=== PATIENT | male | born 1985 | race Caucasian/White ===

== ENCOUNTER 2018-02-12 02:09 | Emergency (ER) | payer MEDICAID, OTHER ==
[~2018-02-12] VITALS: Ht 185.4 cm; Wt 94.3 kg
[~2018-02-12 02:09] MED LIST: LEVEMIR SUBQ; METF500T PO; MIC5 PO
[2018-02-12 02:12] VITALS: BP 121/83
--- NOTE | 2018-02-12 02:16 | NUR ---
Report given to Randy CONTRERAS.
--- NOTE | 2018-02-12 02:16 | NUR ---
Patient ambulated to bed 3 with family. RN evaluating patient at bedside.
--- NOTE | 2018-02-12 02:25 | NUR ---
PT IS A 32 Y/O MALE WHO PRESENTS TO THE ED C/O SHOULDER PAIN. PT STATES THAT IT HAS BEEN GOING ON X1 MONTH. PT REPORTS 7/10 ACHING L SHOULDER PAIN THAT DOES NOT RADIATE, PT DENIES INJURY. NOTED NO OBVIOUS TRAUMA OR DEFORMITY. PT DENIES CP, SOB, N/V/D. PT AWAKE AND ALERT, RR EVEN/UNLABORED. PT REPOSITIONED FOR COMFORT, BED IN LOWEST POSITION. ER MD DR. BEAULIEU NOTIFIED. WILL CONTINUE TO MONITOR.
[2018-02-12] MEDS ORDERED: KETOROLAC 60 MG/2 ML VIAL IM ONE (02:50)
[2018-02-12 03:45] VITALS: BP 130/83
== END 2018-02-12 03:45 | disposition home or self-care (01) ==
LOC: MED 02:09
DX: M25.512 Pain in left shoulder (principal); J45.909 Unspecified asthma, uncomplicated; E11.9 Type 2 diabetes mellitus without complications; I10 Essential (primary) hypertension; Z79.899 Other long term (current) drug therapy
CPT/HCPCS: 73030; 96372; 99284; J1885; Q0092

== ENCOUNTER 2018-08-09 19:25 | Emergency (ER) | payer SELFPAY ==
[~2018-08-09] VITALS: Ht 185.4 cm; Wt 89.4 kg
[2018-08-09 19:33] VITALS: BP 138/90
--- NOTE | 2018-08-09 19:36 | NUR ---
TO LOBBY A/W BED, JOAN PALUMBO, ORI NOTED
--- NOTE | 2018-08-09 20:04 | NUR ---
EKG PERFORMED IN TRAIGE ROOM WITH TRIAGE NURSE PRESENT
--- NOTE | 2018-08-09 20:33 | NUR ---
PT TAKEN TO BED 8
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
--- NOTE | 2018-08-09 20:57 | NUR ---
Dr. Tolentino evaluating patient at bedside.
--- NOTE | 2018-08-09 21:17 | NUR ---
REPORT TO IRMA CONTRERAS TRANSFER OF CARE AT THIS TIME
--- NOTE | 2018-08-09 21:40 | NUR ---
PT TO CT VIA WHEELCHAIR BY TECH.
[2018-08-09] MEDS ORDERED: MECLIZINE 25 MG TAB PO ONE (21:45)
[2018-08-09] MEDS ORDERED: KETOROLAC 30 MG/ML VIAL IM ONE (22:00)
[2018-08-09 22:14] VITALS: BP 128/91
--- NOTE | 2018-08-09 22:16 | NUR ---
COMFORT MEASURES PROVIDED. S/O AT BEDSIDE. 5/10 PAIN AT THIS TIME. PT ACTING APPROPRIATLY. WILL CONTINUE TO MONITOR.
--- NOTE | 2018-08-09 22:39 | NUR ---
SLING SIZE LARGE PLACE ON PT R ARM, FITTED TO PT. +CSM
--- NOTE | 2018-08-09 22:44 | NUR ---
SLING PLACED ON PT LEFT ARM BY EMT. ACTIVE ROM TO PHALANGES. RADIAL PULSES WNL BL, AT THIS TIME.
--- NOTE | 2018-08-09 23:16 | NUR ---
Patient discharged with v/s stable. Written and verbal after care instructions given and explained. Patient alert, oriented and verbalized understanding of instructions. Ambulatory with steady gait. All questions addressed prior to discharge. ID band removed. Patient advised to follow up with PMD. Rx of MECLIZINE AND MOTRIN given. Patient educated on indication of medication including possible reaction and side effects. Opportunity to ask questions provided and answered.
== END 2018-08-09 23:16 | disposition home or self-care (01) ==
LOC: MED 19:25
DX: R42 Dizziness and giddiness (principal); M25.511 Pain in right shoulder; J45.909 Unspecified asthma, uncomplicated; E11.9 Type 2 diabetes mellitus without complications; I10 Essential (primary) hypertension; Z79.4 Long term (current) use of insulin; Z79.899 Other long term (current) drug therapy; W19.XXXA Unspecified fall, initial encounter; Y93.89 Activity, other specified; Y92.89 Other specified places as the place of occurrence of the external cause; Y99.8 Other external cause status
CPT/HCPCS: 70450; 74176; 82948; 93005; 96372; 99284; J1885; J8597

== ENCOUNTER 2018-11-29 04:00 | Emergency (ER) | payer OTHER ==
[~2018-11-29] VITALS: Ht 185.4 cm; Wt 81.6 kg
--- NOTE | 2018-11-29 04:03 | NUR ---
PT TAKEN TO BED 3
--- NOTE | 2018-11-29 04:06 | NUR ---
32/M PRESENTS TO ED, C/O LLE PAIN X1 MONTH, WITH SUDDEN ONSET NUMBNESS ON LLE THIS EARLY AM. LLLE NOTED WITH LARGE PSORIASIS RASH, TENDER TO TOUCH, +CMS. PT DENIES INJURY/TRAUMA. DENIES CP, SOB, N/V. PT AWAKE AND ALERT, SKIN NOTED WITH PSORIASIS RASH, WARM AND DRY, RR EVEN AND UNLABORED. PT ADMITS TO DRINKING ALCOHOL 4 HRS AGO. HX DM, HTN, PSORIASIS, CHRONIC ALCOHOLISM RX METFORMIN, LISINOPRIL, GABAPENTIN
[2018-11-29 04:07] VITALS: BP 134/77
[2018-11-29] MEDS ORDERED: MORPHINE SULFATE 2 MG/ML SYR IM ONE (04:20)
[2018-11-29] MEDS ORDERED: INSULIN REGULAR, HUMAN 100 UNIT/ML VIAL IVP ONE (04:30)
[2018-11-29] MEDS ORDERED: NACL 0.9% 1,000 ML IV ONE (04:30)
[2018-11-29 04:46] LABS: BASOPHILS # (AUTO) 0.1 K/uL (0.00-0.22); BASOPHILS % (AUTO) 1.5 % (0.0-2.0); EOSINOPHILS # (AUTO) 0.1 K/uL (0-0.4); EOSINOPHILS % (AUTO) 1.4 % (0.0-4.0); HEMATOCRIT 48.3 % (36-52); HEMOGLOBIN 16.8 g/dL (12.0-18.0); LYMPHOCYTES # (AUTO) 1.7 K/uL (2.0-11.5); LYMPHOCYTES % (AUTO) 30.1 % (20.5-51.1); MEAN CORPUSCULAR HEMOGLOBIN 34 pg (27-31); MEAN CORPUSCULAR HGB CONC 35 g/dL (33-37); MEAN CORPUSCULAR VOLUME 97.9 fL (80-94); MONOCYTES # (AUTO) 0.7 K/uL (0.8-1.0); MONOCYTES % (AUTO) 11.9 % (1.7-9.3); NEUTROPHILS # (AUTO) 3.2 K/uL (1.8-7.7); NEUTROPHILS % (AUTO) 55.1 % (42.2-75.2); PLATELET COUNT (AUTO) 131 K/uL (140-450); RED BLOOD CELL COUNT(AUTO) 4.93 MIL/uL (4.20-6.10); RED CELL DISTRIBUTION WIDTH 13.4 % (11.6-13.7); WHITE BLOOD COUNT (AUTO) 5.8 K/uL (4.8-10.8)
[2018-11-29 05:04] LABS: ALBUMIN 3.5 g/dL (3.4-5.0); ANION GAP 15.2 (8-16); CARBON DIOXIDE 27.6 mmol/L (21-32); CREATININE 0.7 mg/dL (0.7-1.3); POTASSIUM 3.8 mmol/L (3.5-5.1); TOTAL BILIRUBIN 1.2 mg/dL (0.0-1.0)
[2018-11-29 05:35] VITALS: BP 106/52
--- NOTE | 2018-11-29 05:35 | NUR ---
Patient discharged with v/s stable. Written and verbal after care instructions given and explained. Patient alert, oriented and verbalized understanding of instructions. Wheel Chair Assisted with to car. All questions addressed prior to discharge. ID band removed. Patient advised to follow up with PMD. Rx of GABAPENTIN 300MG AND MOTRIN 800MG given. Patient educated on indication of medication including possible reaction and side effects. Opportunity to ask questions provided and answered.
== END 2018-11-29 05:35 | disposition home or self-care (01) ==
LOC: MED 04:00
DX: L40.9 Psoriasis, unspecified (principal); E11.42 Type 2 diabetes mellitus with diabetic polyneuropathy; J45.909 Unspecified asthma, uncomplicated; I10 Essential (primary) hypertension; Z79.4 Long term (current) use of insulin; Z79.899 Other long term (current) drug therapy
CPT/HCPCS: 36415; 80053; 82948; 85025; 96361; 96372; 96374; 99283; J1815; J2270; J7030

== ENCOUNTER 2019-04-15 04:31 | Emergency (ER) | payer OTHER ==
[~2019-04-15] VITALS: Ht 185.4 cm; Wt 86.2 kg
[2019-04-15 04:31] VITALS: BP 158/89
--- NOTE | 2019-04-15 04:31 | NUR ---
PT AMBULATED TO CHAIR C WITH [facility]
--- NOTE | 2019-04-15 04:38 | NUR ---
PT CAME IN TO ER WITH [facility] FOR A PREBOOK MEDICAL CLEARANCE ON DM AND PSORIASIS. BS IS 329 AT THIS TIME. PT CURRENTLY TAKES INSULIN AND METFORMIN FOR DM AND TOOK IT THIS MORNING PER PT. PT HAS PAIN IN HIS SCALP DUE TO SPORIASIS. PAIN LEVEL IS 7/10 AT THIS TIME. PT STATED HE RECENLTY RECIEVED A MEDICATION FOR HIS FLARE UP OF PSORIASIS. PT IS ALERT AND IS ABLE TO ANSWER QUESTIONS APPROPRIATELY. PT DENIES ANY OTHER PAIN OR INJURY. [facility] IS AT CHAIR SIDE. SAFETY MEASURES IN PLACE.
[2019-04-15] MEDS ORDERED: INSULIN REGULAR, HUMAN 100 UNIT/ML VIAL SUBQ ONE (04:40)
--- NOTE | 2019-04-15 04:54 | NUR ---
BS WAS DONE, MD Nick TO ORDER MEDICATION. VSS
--- NOTE | 2019-04-15 04:54 | NUR ---
PT RECIEVED MEDICATION, PT TOLERATED WELL. WILL FOLLOW UP WITH PT WITH REPEAT ACCU CHECK.
[2019-04-15 05:15] VITALS: BP 158/89
--- NOTE | 2019-04-15 05:15 | NUR ---
Patient discharged with v/s stable. Written and verbal after care instructions given and explained. Patient verbalized understanding. PT Ambulatory with [facility] in custody. All questions addressed prior to discharge. Advised to follow up with PMD.
== END 2019-04-15 05:15 ==
LOC: MED 04:31
DX: E11.9 Type 2 diabetes mellitus without complications (principal); L40.9 Psoriasis, unspecified; J45.909 Unspecified asthma, uncomplicated; I10 Essential (primary) hypertension; Z79.84 Long term (current) use of oral hypoglycemic drugs; Z79.899 Other long term (current) drug therapy; Z02.89 Encounter for other administrative examinations
CPT/HCPCS: 96372; 99283; J1815

== ENCOUNTER 2020-04-30 10:10 | Emergency (ER) | payer OTHER ==
[~2020-04-30] VITALS: Ht 185.4 cm; Wt 90.7 kg
[2020-04-30 10:15] VITALS: BP 133/94
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
[2020-04-30] MEDS ORDERED: MECLIZINE 25 MG TAB PO ONE (11:00)
[2020-04-30 11:01] VITALS: BP 133/94
--- NOTE | 2020-04-30 11:02 | NUR ---
Patient discharged with v/s stable. Written and verbal after care instructions given and explained. Patient verbalized understanding. Ambulatory with steady gait. All questions addressed prior to discharge. Advised to follow up with PMD.
== END 2020-04-30 11:02 | disposition home or self-care (01) ==
LOC: MED 10:10
DX: H61.22 Impacted cerumen, left ear (principal); I10 Essential (primary) hypertension; E11.9 Type 2 diabetes mellitus without complications; J45.909 Unspecified asthma, uncomplicated; Z79.899 Other long term (current) drug therapy; Z79.84 Long term (current) use of oral hypoglycemic drugs
CPT/HCPCS: 69209; 99282; J8597

== ENCOUNTER 2020-05-02 09:21 | Emergency (ER) | payer OTHER ==
[~2020-05-02] VITALS: Ht 185.4 cm; Wt 90.7 kg
[2020-05-02 09:26] VITALS: BP 134/90
--- NOTE | 2020-05-02 09:35 | NUR ---
WAIT AT LOBBY. HANDED ON URINE CUP.
--- NOTE | 2020-05-02 09:46 | NUR ---
C/O DIZZINESS, L EAR PAIN & HEADACHE S/P FALL X 2 DAYS. SEEN HERE FOR CERUMEN IMPACTION 2 DAYS AGO. BLOOD SUGAR 311 AT THIS TIME. PMH: DM,PSORIASIS
[2020-05-02] MEDS ORDERED: MECLIZINE 25 MG TAB PO ONE (10:50)
--- NOTE | 2020-05-02 11:25 | NUR ---
Patient discharged BY DR SESAY with v/s stable. Written and verbal after care instructions given and explained. Patient alert, oriented and verbalized understanding of instructions. Ambulatory with steady gait. All questions addressed prior to discharge. ID band removed. Patient advised to follow up with PMD. Rx of AUGMENTIN, DEBROX & ANTIVERT given. Patient educated on indication of medication including possible reaction and side effects. Opportunity to ask questions provided and answered.
[2020-05-02 11:26] VITALS: BP 134/90
== END 2020-05-02 11:25 | disposition home or self-care (01) ==
LOC: MED 09:21
DX: H66.92 Otitis media, unspecified, left ear (principal); J45.909 Unspecified asthma, uncomplicated; E11.9 Type 2 diabetes mellitus without complications; L40.9 Psoriasis, unspecified; Z79.899 Other long term (current) drug therapy; I10 Essential (primary) hypertension
CPT/HCPCS: 81002; 99283; J8597

== ENCOUNTER 2020-08-18 20:42 | Emergency (ER) | payer OTHER ==
[~2020-08-18] VITALS: Ht 185.4 cm; Wt 90.7 kg
[~2020-08-18 20:42] MED LIST changes: +GLYB-200 PO; -MIC5 PO
[2020-08-18 20:47] VITALS: BP 156/84
--- NOTE | 2020-08-18 20:47 | NUR ---
TO BED VIA WHEELCHAIR
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
[2020-08-18] MEDS ORDERED: ONDANSETRON 4 MG ODT PO ONE (23:20)
[2020-08-18] MEDS ORDERED: ACETAMINOPHEN 325 MG TAB PO ONE (23:20)
--- NOTE | 2020-08-18 23:21 | NUR ---
PT OFF TO CT
[2020-08-18] MEDS ORDERED: LIDOCAINE MPF 1% 10 MG/ML VIAL INJ ONE (23:35)
[2020-08-19] MEDS ORDERED: SULFAMETH/TRIMETH DS 800/160MG 1 TAB PO ONE (00:40)
[2020-08-19] MEDS ORDERED: cephALEXin 500 MG CAP PO ONE (00:40)
--- NOTE | 2020-08-19 01:08 | NUR ---
ERMD AT BEDSIDE DOING I&D. ERMD GAVE LIDOCAINE WELL.
[2020-08-19] MEDS ORDERED: [UNRECOGNIZED DRUG - CODE] PO (01:29)
[2020-08-19] MEDS ORDERED: SULF-59 PO (01:29)
[2020-08-19] MEDS ORDERED: CEPH500C16 PO (01:29)
[2020-08-19] MEDS ORDERED: BACITRACIN OINT 500 UNITS/GM PKT TP ONE (01:40)
[2020-08-19 01:52] VITALS: BP 125/80
--- NOTE | 2020-08-19 01:53 | NUR ---
Patient discharged with v/s stable. Written and verbal after care instructions given and explained. Patient alert, oriented and verbalized understanding of instructions. Ambulatory with steady gait. All questions addressed prior to discharge. ID band removed. Patient advised to follow up with PMD. Rx of NAPROXEN, KEFLEX, BACTRIM given. Patient educated on indication of medication including possible reaction and side effects. Opportunity to ask questions provided and answered.
== END 2020-08-19 01:52 | disposition home or self-care (01) ==
LOC: MED 20:42
DX: S83.92XA Sprain of unspecified site of left knee, initial encounter (principal); L03.012 Cellulitis of left finger; M79.10 Myalgia, unspecified site; J45.909 Unspecified asthma, uncomplicated; E11.9 Type 2 diabetes mellitus without complications; I10 Essential (primary) hypertension; Z79.899 Other long term (current) drug therapy; X58.XXXA Exposure to other specified factors, initial encounter; Y93.89 Activity, other specified; Y92.89 Other specified places as the place of occurrence of the external cause; Y99.8 Other external cause status
CPT/HCPCS: 26010; 70450; 73130; 73552; 73564; 73590; 82948; 87070; 87186; 99285; J2001; Q0162

== ENCOUNTER 2020-11-07 12:53 | Emergency (ER) | payer OTHER, MEDICAID ==
[~2020-11-07] VITALS: Ht 172.7 cm; Wt 81.6 kg
[~2020-11-07 12:53] MED LIST changes: +CEPH500C16 PO; +SULF-59 PO; +[UNRECOGNIZED DRUG - CODE] PO
[2020-11-07 12:57] VITALS: BP 111/86
--- NOTE | 2020-11-07 12:58 | NUR ---
PT AMBULATED TO BED 1. ISOLATED FOR COVID PRECAUTIONS.
--- NOTE | 2020-11-07 13:19 | NUR ---
DR. LAMB AT BEDSIDE FOR EVALUATION.
--- NOTE | 2020-11-07 13:20 | NUR ---
34/M presents to ED with c/o cough, loss of taste and smell since last night. Pt states he has not been feeling well over the weekend with heavy alcohol intake and N/V. Pt states he slept in front of a fan and not sure if he caught a cold but states he wanted to be checked for covid. Denies any contacts. Pt has not received the covid vaccine. Pt states he has been grieving the loss of his mother who passed 10/18/20. Pt states that is why he was drinking this weekend.
--- NOTE | 2020-11-07 13:40 | NUR ---
Covid novel and rosales swab collected, walked to lab and handed to CPT. Brandon
[2020-11-07] MEDS ORDERED: NACL 0.9% 1,000 ML IV ONE (14:25)
[2020-11-07 14:51] LABS: EOSINOPHILS # (AUTO) 0.1 K/uL (0-0.4); EOSINOPHILS % (AUTO) 1.6 % (0.0-4.0); HEMATOCRIT 45.2 % (36-52); HEMOGLOBIN 15.7 g/dL (12.0-18.0); LYMPHOCYTES # (AUTO) 0.6 K/uL (2.0-11.5); LYMPHOCYTES % (AUTO) 19.7 % (20.5-51.1); MEAN CORPUSCULAR HEMOGLOBIN 35 pg (27-31); MEAN CORPUSCULAR HGB CONC 35 g/dL (33-37); MEAN CORPUSCULAR VOLUME 100.5 fL (80-94); MONOCYTES # (AUTO) 0.6 K/uL (0.8-1.0); MONOCYTES % (AUTO) 18.8 % (1.7-9.3); NEUTROPHILS # (AUTO) 1.9 K/uL (1.8-7.7); NEUTROPHILS % (AUTO) 58.9 % (42.2-75.2); PLATELET COUNT (AUTO) 49 K/uL (140-450); RED CELL DISTRIBUTION WIDTH 13.8 % (11.6-13.7); WHITE BLOOD COUNT (AUTO) 3.2 K/uL (4.8-10.8)
[2020-11-07 15:01] LABS: ANION GAP 9.3 (8-16); CARBON DIOXIDE 30.6 mmol/L (21-32); CREATININE 0.6 mg/dL (0.6-1.3); POTASSIUM 3.9 mmol/L (3.5-5.1)
[2020-11-07] MEDS ORDERED: METF-988 PO (15:08)
--- NOTE | 2020-11-07 15:55 | NUR ---
Covid swab invalid; new rosales order placed.
[2020-11-07 15:58] VITALS: BP 116/82
--- NOTE | 2020-11-07 15:58 | NUR ---
Patient discharged with v/s stable. Written and verbal after care instructions given and explained. Patient alert, oriented and verbalized understanding of instructions. Ambulatory with steady gait. All questions addressed prior to discharge. ID band removed. Patient advised to follow up with PMD. Rx of Metformin given. Patient educated on indication of medication including possible reaction and side effects. Opportunity to ask questions provided and answered.
--- NOTE | 2020-11-09 15:52 | NUR ---
Lab called, patient covid results positive.
== END 2020-11-07 15:58 | disposition home or self-care (01) ==
LOC: MED 12:53
DX: U07.1 COVID-19 (principal); E11.9 Type 2 diabetes mellitus without complications; I10 Essential (primary) hypertension; J45.909 Unspecified asthma, uncomplicated; Z20.822 Contact with and (suspected) exposure to COVID-19
CPT/HCPCS: 36415; 80048; 81002; 85025; 87426; 96360; 99283; J7030; U0003

== ENCOUNTER 2021-01-24 15:11 | Emergency (ER) | payer OTHER, MEDICAID ==
[~2021-01-24] VITALS: Ht 185.4 cm; Wt 86.2 kg
[~2021-01-24 15:11] MED LIST changes: +METF-988 PO
[2021-01-24 15:16] VITALS: BP 149/98
--- NOTE | 2021-01-24 15:22 | NUR ---
PT SENT TO LOBBY
[2021-01-24] MEDS ORDERED: BACITRACIN OINT 500 UNITS/GM PKT TP ONE ×2 (15:40→15:50)
--- NOTE | 2021-01-24 16:26 | NUR ---
PT'S WOUNDS CLEANED AND IRRIGATED WITH NORMAL SALINE AND BETADINE MIX. APPLIED BACITRACIN TO PT'S WOUNDS ON RIGHT 3RD AND 4TH DIGIT FINGERS AND RIGHT FOOT. WOUNDS DRESSED WITH NON-ADHERENT AND 3" GUAZE ROLLS. [facility] WNL BEFORE AND AFTER, PA AND RN NOTIFIED.
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
[2021-01-24] MEDS ORDERED: BACI1PAC6 TP (16:40)
[2021-01-24] MEDS ORDERED: LEVO750T51 PO (16:40)
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
== END 2021-01-24 16:48 | disposition home or self-care (01) ==
LOC: MED 15:11
DX: T23.201A Burn of second degree of right hand, unspecified site, initial encounter (principal); S91.331A Puncture wound without foreign body, right foot, initial encounter; J45.909 Unspecified asthma, uncomplicated; I10 Essential (primary) hypertension; E11.9 Type 2 diabetes mellitus without complications; Z79.84 Long term (current) use of oral hypoglycemic drugs; Z79.899 Other long term (current) drug therapy; X08.8XXA Exposure to other specified smoke, fire and flames, initial encounter; Y93.89 Activity, other specified; Y92.89 Other specified places as the place of occurrence of the external cause; Y99.8 Other external cause status
CPT/HCPCS: 16020; 73630; 90471; 90715; 99283

== ENCOUNTER 2021-03-27 15:00 | Emergency (ER) | payer MEDICAID, OTHER ==
[~2021-03-27] VITALS: Ht 185.4 cm; Wt 94.8 kg
[~2021-03-27 15:00] MED LIST changes: +BACI1PAC6 TP; +LEVO750T51 PO; +METF-1243 PO; -METF-988 PO
[2021-03-27 15:02] VITALS: BP 128/89
--- NOTE | 2021-03-27 15:08 | NUR ---
Patient to chair Ruzi
--- NOTE | 2021-03-27 15:22 | NUR ---
Patient ambulated from Chair C to bed 01 with seady/even gait.
[2021-03-27] MEDS ORDERED: TETRACAINE HCL/PF 0.5% OPTH 4 ML BTL OP ONE (15:30)
[2021-03-27] MEDS ORDERED: FLUORESCEIN OPTH STRIP 1 MG OP ONE (15:30)
--- NOTE | 2021-03-27 16:29 | NUR ---
CHEN BOLAND BEDSIDE FURTHER EVALUATING PT
[2021-03-27] MEDS ORDERED: TOMOMETER 1 DEV DEV MC ONE (17:06)
--- NOTE | 2021-03-27 17:08 | NUR ---
CHEN BOLAND BEDSIDE PERFORMING FUTHER EVALUATION ON PT
[2021-03-27] MEDS ORDERED: OFLO5SOL RIGHT EYE (17:16)
[2021-03-27 17:37] VITALS: BP 129/88
--- NOTE | 2021-03-27 17:37 | NUR ---
Patient discharged with v/s stable. Written and verbal after care instructions given and explained. Patient alert, oriented and verbalized understanding of instructions. Ambulatory with steady gait. All questions addressed prior to discharge. ID band removed. Patient advised to follow up with PMD. Rx of OFLOXACIN given. Patient educated on indication of medication including possible reaction and side effects. Opportunity to ask questions provided and answered.
== END 2021-03-27 17:37 | disposition home or self-care (01) ==
LOC: MED 15:00
DX: H57.11 Ocular pain, right eye (principal); J45.909 Unspecified asthma, uncomplicated; E11.9 Type 2 diabetes mellitus without complications; I10 Essential (primary) hypertension; L40.9 Psoriasis, unspecified; Z79.899 Other long term (current) drug therapy; Z79.4 Long term (current) use of insulin
CPT/HCPCS: 99283